=== PATIENT | male | born 1985 | race Caucasian/White ===

== ENCOUNTER 2017-01-14 10:53 | Emergency (ER) | payer MEDICARE ==
[2017-01-14 11:09] VITALS: TEMP 97.9
--- NOTE | 2017-01-14 12:20 | ED.PDOC ---
History of Present Illness - General Chief Complaint: General Stated Complaint: ring stuck on finger Time Seen by Provider: 01/14/17 11:27 Source: patient, other - [employer] Exam Limitations: other - HISTORY OF DEVELOPMENTAL DELAY - History of Present Illness Initial Comments: PT PRESENTS TO THE ED WITH A RING STUCK ON HIS FINGER. PT REPORTS THAT RING BECAME STUCK LAST NIGHT AFTER HE PLACED THE RING ON HIS FINGER. Timing/Duration: 24 hours Severity: mild Improving Factors: immobilization Worsening Factors: movement Allergies/Adverse Reactions: Allergies NO KNOWN ALLERGY Allergy (Verified 01/14/17 11:09) Home Medications: Ambulatory Orders Benztropine Mesylate [Cogentin] 2 mg PO BID 01/14/17 Divalproex Sodium ER [Depakote ER] 1,000 mg PO BID 01/14/17 Quetiapine Fumarate [Seroquel] 200 mg PO BID 01/14/17 Review of Systems - Review of Systems Constitutional: Denies: chills Respiratory: Denies: cough, short of breath Cardiology: Denies: chest pain, palpitations Skin: Denies: dryness, lesions Past Medical History (General) - Patient Medical History Hx Congestive Heart Failure: No Hx Diabetes: No Surgical History: no surgical history - Vaccination History Hx Influenza Vaccination: Yes - Social History Hx Tobacco Use: Yes Family Medical History - Family History Father Family History: Unknown Living Status: Unknown Physical Exam - Physical Exam General Appearance: Alert, No apparent distress Ears, Nose, Throat: normal ENT inspection Extremity: normal capillary refill, other - GOLD BAND ON LEFT 4TH DIGIT WITH DISTAL PORTION OF DIGIT MILDLY EDEMATOUS AND ERYTHEMATOUS. Skin Exam: normal color, warm/dry Progress - Progress Progress: 01/14/17 13:24 RING WAS REMOVED SUCESSFULLY BY NURSING STAFF. Departure - Departure Clinical Impression: Tight ring on finger Time of Disposition: 13:26 Disposition: Discharge to Home or Self Care Condition: Good Departure Forms: ED Discharge - Pt. Copy, Patient Portal Self Enrollment Instructions: DI for Contusion Home Medications: Ambulatory Orders Benztropine Mesylate [Cogentin] 2 mg PO BID 01/14/17 Divalproex Sodium ER [Depakote ER] 1,000 mg PO BID 01/14/17 Quetiapine Fumarate [Seroquel] 200 mg PO BID 01/14/17
[2017-01-14] MEDS ORDERED: NEOMYCIN-BACITRACIN-POLYMYXIN 0.9 GM UD TOP ONE (13:12)
[2017-01-14 13:35] VITALS: BP 156/85; O2SAT 100
== END 2017-01-14 13:35 | disposition home or self-care (01) ==
LOC: ER 10:53
DX: S60.455A Superficial foreign body of left ring finger, initial encounter (principal); Z87.891 Personal history of nicotine dependence; X58.XXXA Exposure to other specified factors, initial encounter; Y92.199 Unspecified place in other specified residential institution as the place of occurrence of the external cause